=== PATIENT | female | born 1980 | race Hispanic/Latino ===

== ENCOUNTER 2018-09-24 23:51 | Emergency (ER) | payer BC, OTHER ==
[2018-09-25] MEDS ORDERED: CATAPRES ONE (00:20)
[2018-09-25] MEDS ORDERED: CATAPRES PO ONE (00:21)
[2018-09-25 00:45] LABS: Basophils % (Auto) 0.2 % (0.0-1.8); Eosinophils # (Auto) 0.3 K/mm3 (0.0-0.4); Eosinophils % (Auto) 3.2 % (0.0-4.3); Hematocrit 37.4 % (30.3-42.9); Hemoglobin 12.6 gm/dl (10.1-14.3); Lymphocytes # (Auto) 2.9 K/mm3 (1.2-5.4); Lymphocytes % (Auto) 32.5 % (13.4-35.0); Mean Corpuscular HGB Conc 34 % (30-34); Mean Corpuscular Volume 86 fl (79-97); Monocytes # (Auto) 0.4 K/mm3 (0.0-0.8); Monocytes % (Auto) 4.5 % (0.0-7.3); Platelet Count 254 K/mm3 (140-440); Red Blood Count 4.36 M/mm3 (3.65-5.03); Red Cell Distribution Width 14.1 % (13.2-15.2)
[2018-09-25 00:50] LABS: BUN/Creatinine Ratio 24; Blood Urea Nitrogen 12 mg/dL (7-17); Calcium 8.9 mg/dL (8.4-10.2); Hemolysis Index 2
[2018-09-25] MEDS ORDERED: APRESOLINE IV ONE (02:02)
[2018-09-25 02:42] VITALS: BP 150/70
--- NOTE | 2018-09-25 02:42 | Emergency Department Report ---
ED General Adult HPI - General Chief complaint: High BP Stated complaint: HIGH BLOOD PRESSURE Time Seen by Provider: 09/25/18 00:48 Source: patient Mode of arrival: Ambulatory Limitations: No Limitations - History of Present Illness Initial comments: 38-year-old female patient with history of chronic hypertension. Patient sent here from [facility] for elevated blood pressure. Compliant with blood pressure medications. Patient is asymptomatic, has no complaints. -: This evening Consistency: constant Improves with: none Worsens with: none Associated Symptoms: denies other symptoms - Related Data Home Medications Medication Instructions Recorded Confirmed Last Taken Clonidine 0.1 mg PO DAILY 09/25/18 09/25/18 Unknown Lisinopril 40 mg PO DAILY 09/25/18 09/25/18 Unknown Propranolol mg PO DAILY 09/25/18 Unknown Allergies Allergy/AdvReac Type Severity Reaction Status Date / Time No Known Allergies Allergy Unverified 09/25/18 00:06 ED Review of Systems ROS: Stated complaint: HIGH BLOOD PRESSURE Other details as noted in HPI Comment: All other systems reviewed and negative Constitutional: denies: chills, fever Respiratory: denies: cough, shortness of breath Cardiovascular: denies: chest pain Gastrointestinal: denies: nausea, vomiting Neurological: denies: headache ED Past Medical Hx - Past Medical History Hx Hypertension: Yes - Surgical History Past Surgical History?: No - Social History Smoking Status: Current Some Day Smoker Substance Use Type: Other - Medications Home Medications: Home Medications Medication Instructions Recorded Confirmed Last Taken Type Clonidine 0.1 mg PO DAILY 09/25/18 09/25/18 Unknown History Lisinopril 40 mg PO DAILY 09/25/18 09/25/18 Unknown History Propranolol mg PO DAILY 09/25/18 Unknown History ED Physical Exam - General Limitations: No Limitations General appearance: alert, in no apparent distress - Head Head exam: Present: atraumatic, normocephalic - Eye Eye exam: Present: normal appearance - ENT ENT exam: Present: mucous membranes moist - Neck Neck exam: Present: normal inspection - Respiratory Respiratory exam: Present: normal lung sounds bilaterally. Absent: respiratory distress - Cardiovascular Cardiovascular Exam: Present: regular rate, normal rhythm - GI/Abdominal GI/Abdominal exam: Present: soft. Absent: distended - Extremities Exam Extremities exam: Present: normal inspection - Neurological Exam Neurological exam: Present: alert, oriented X3, CN II-XII intact. Absent: motor sensory deficit - Psychiatric Psychiatric exam: Present: normal affect, normal mood - Skin Skin exam: Present: warm, dry, intact, normal color. Absent: rash ED Course Vital Signs 09/24/18 09/25/18 09/25/18 23:59 00:22 00:32 Temperature 98.7 F Pulse Rate 69 69 Respiratory 16 14 Rate Blood Pressure 189/102 189/102 Blood Pressure [Right] O2 Sat by Pulse 98 Oximetry 09/25/18 09/25/18 09/25/18 01:53 02:07 02:41 Temperature 98.3 F Pulse Rate 62 62 70 Respiratory 14 16 Rate Blood Pressure 208/103 Blood Pressure 208/103 150/70 [Right] O2 Sat by Pulse 99 100 Oximetry ED Medical Decision Making - Lab Data Result diagrams: 09/25/18 00:27 09/25/18 00:27 - Medical Decision Making 38-year-old female with asymptomatic hypertension. BP improved with clonidine and hydralazine. Labs normal. Will discharge at this time. Return precautions given. Outpatient follow-up advised. - Differential Diagnosis essential HTN Critical care attestation.: If time is entered above; I have spent that time in minutes in the direct care of this critically ill patient, excluding procedure time. ED Disposition Clinical Impression: Essential hypertension Disposition: DC-01 TO HOME OR SELFCARE Is pt being admited?: No Condition: Stable Instructions: Hypertension (ED) Referrals: PRIMARY CARE [Referring] - 3-5 Days [facility] [Provider Group] - 3-5 Days Time of Disposition: 02:42
== END 2018-09-25 03:02 | disposition home or self-care (01) ==
LOC: ED 23:51
DX: I10 Essential (primary) hypertension (principal); F17.200 Nicotine dependence, unspecified, uncomplicated
CPT/HCPCS: 36415; 80048; 85025; 96374; 99283; J0360

== ENCOUNTER 2018-10-01 10:37 | Emergency (ER) | payer BC ==
[2018-10-01] MEDS ORDERED: APRESOLINE IV ONE (11:04)
--- NOTE | 2018-10-01 11:45 | Emergency Department Report ---
HPI - General Chief Complaint: High BP Time Seen by Provider: 10/01/18 11:33 - HPI HPI: Room 3 The patient is 38-year-old female presenting with a chief complaint of hypertension and headache. 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 She was found to be hypertensive earlier today and developed a biparietal headache. Patient was subsequently sent to the ED for evaluation. Patient denies nausea/vomiting. Patient gives her headache score of 5/10. Patient was reported to be hypertensive to 250/125 per EMS Location: Head Duration: 1 day Quality: Headache Severity: 5/10 Modifying factors: [see above] Context: [see above] Mode of transportation: [not driving] ED Past Medical Hx - Past Medical History Previous Medical History?: Yes Hx Hypertension: Yes Hx Psychiatric Treatment: Yes (drug abuse) - Surgical History Past Surgical History?: No - Family History Family history: no significant - Social History Smoking Status: Current Some Day Smoker Substance Use Type: Other (methadone, Xanax) - Medications Home Medications: Home Medications Medication Instructions Recorded Confirmed Last Taken Type Clonidine 0.1 mg PO DAILY 09/25/18 09/25/18 Unknown History Lisinopril 40 mg PO DAILY 09/25/18 09/25/18 Unknown History Propranolol mg PO DAILY 09/25/18 Unknown History ED Review of Systems ROS: Stated complaint: HYPERTENSION Other details as noted in HPI Constitutional: no symptoms reported Eyes: denies: eye pain ENT: denies: throat pain Respiratory: no symptoms reported Cardiovascular: denies: chest pain Endocrine: no symptoms reported Gastrointestinal: denies: nausea, vomiting Genitourinary: denies: dysuria Musculoskeletal: denies: back pain Neurological: headache Physical Exam - Physical Exam Vital Signs: Vital Signs 10/01/18 10/01/18 10:52 11:06 Temperature 98.7 F Pulse Rate 68 62 Respiratory 18 18 Rate Blood Pressure 175/86 Blood Pressure 151/82 [Left] O2 Sat by Pulse 99 99 Oximetry Vital Signs 10/01/18 10/01/18 10/01/18 10:52 11:06 12:05 Temperature 98.7 F Pulse Rate 68 62 62 Respiratory 18 18 18 Rate Blood Pressure 175/86 Blood Pressure 151/82 154/82 [Left] O2 Sat by Pulse 99 99 98 Oximetry Physical Exam: GENERAL: The patient is well-developed well-nourished []. [] HEENT: Normocephalic. Atraumatic. Extraocular motions are intact. Patient has moist mucous membranes. NECK: Supple. Trachea midline CHEST/LUNGS: Clear to auscultation. There is no respiratory distress noted. HEART/CARDIOVASCULAR: Regular. There is no tachycardia. There is no gallop rub or murmur. ABDOMEN: Abdomen is soft, nontender. Patient has normal bowel sounds. There is no abdominal distention. SKIN: There is no rash. There is no edema. There is no diaphoresis. NEURO: The patient is awake, alert, and oriented. The patient is cooperative. The patient has no focal neurologic deficits. The patient has normal speech. Cranial nerves II through XII grossly intact, no drift MUSCULOSKELETAL: There is no evidence of acute injury. ED Course Vital Signs 10/01/18 10/01/18 10:52 11:06 Temperature 98.7 F Pulse Rate 68 62 Respiratory 18 18 Rate Blood Pressure 175/86 Blood Pressure 151/82 [Left] O2 Sat by Pulse 99 99 Oximetry ED Medical Decision Making - Radiology Data CT head (read by radiologist)-There is no acute intracranial abnormality identified - Differential Diagnosis hypertension, hypertensive urgency, ICH Critical care attestation.: If time is entered above; I have spent that time in minutes in the direct care of this critically ill patient, excluding procedure time. ED Disposition Clinical Impression: Hypertension, Headache Disposition: DC/TX-65 PSY HOSP/PSY UNIT Is pt being admited?: No Does the pt Need Aspirin: No Condition: Stable Instructions: Hypertension (ED) Referrals: PATRICIO MCNAIR [Staff Physician] - 3-5 Days Time of Disposition: 12:58
--- NOTE | 2018-10-01 12:51 | Cat Scan Report ---
FINAL REPORT EXAM: CT HEAD/BRAIN WO CON HISTORY: head pain with HTN TECHNIQUE: CT of the head was performed. No intravenous contrast was administered. PRIORS: None. FINDINGS: There is no evidence of intracranial hemorrhage. There is no edema, mass effect or midline shift. There are no abnormal extra-axial fluid collections. The ventricles are appropriate for brain volume. There is no skull fracture seen. The visualized aspects of the sinuses are clear. IMPRESSION: There is no acute intracranial abnormality identified.
[2018-10-01] MEDS ORDERED: CATAPRES PO ONE (13:33)
[2018-10-01 15:29] VITALS: BP 161/90
== END 2018-10-01 14:05 ==
LOC: ED 10:37
DX: I10 Essential (primary) hypertension (principal); F17.200 Nicotine dependence, unspecified, uncomplicated; F13.10 Sedative, hypnotic or anxiolytic abuse, uncomplicated; Z91.09 Other allergy status, other than to drugs and biological substances
CPT/HCPCS: 70450